=== PATIENT | female | born 1955 | race Two or more races ===

== ENCOUNTER 2022-11-30 10:28 | Emergency (ER) | payer OTHER ==
[~2022-11-30] VITALS: Ht 167.6 cm; Wt 61.7 kg
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
--- NOTE | 2022-11-30 11:44 | NUR ---
PT VITAL SIGNS, EMD MADE AWARE. HYPERTENSIVE PT 190/110, 92HR, 98%O2 SAT
--- NOTE | 2022-11-30 11:45 | NUR ---
MARY NI AT BEDSIDE. AWAITING FOR ORDERS
--- NOTE | 2022-11-30 11:45 | NUR ---
PAIN ASSESSED 2/10
--- NOTE | 2022-11-30 12:44 | NUR ---
PT CLAIMS SHE IS NAUSEOUS ASKING FOR MEDS. MADE AWARE
[2022-11-30] MEDS ORDERED: ONDANSETRON 4 MG TAB.RAPDIS ONE (12:46)
--- NOTE | 2022-11-30 12:49 | NUR ---
ZOFRAN 4MG PO GIVEN PER DR SANON ORDERS
[2022-11-30] MEDS ORDERED: IBUP-1955 PO (14:27)
[2022-11-30] MEDS ORDERED: LIDO30AD10 TP (14:28)
[2022-11-30 15:25] VITALS: BP 160/100
== END 2022-11-30 15:26 | disposition home or self-care (01) ==
LOC: ER 10:41
DX: R07.89 Other chest pain (principal); Z85.118 Personal history of other malignant neoplasm of bronchus and lung; I10 Essential (primary) hypertension; Z79.899 Other long term (current) drug therapy; V43.52XA Car driver injured in collision with other type car in traffic accident, initial encounter; Y93.89 Activity, other specified; Y92.89 Other specified places as the place of occurrence of the external cause; Y99.8 Other external cause status
CPT/HCPCS: 99284; 71250; Q0162